=== PATIENT | male | born 1980 | race Caucasian/White ===

== ENCOUNTER → 2019-11-07 | Outpatient (CLI) | payer BC ==
--- NOTE | 2019-11-15 13:10 | REP ---
LEFT HAND CLINICAL: Pain. TECHNIQUE: AP, lateral, bilateral oblique views of the left hand. FINDINGS: Osseous structures, joint spaces, and surrounding soft tissues are essentially age appropriate. No acute or healed injury is appreciated. No subcutaneous emphysema or foreign body. IMPRESSION: Normal age appropriate left hand radiographs MTDD
== END ==
LOC: M WUC 15:56
PROVIDERS: ATTEND Nurse Practitioner Family
DX: M79.642 Pain in left hand (principal)